=== PATIENT | female | born 1940 | race Caucasian/White ===

== ENCOUNTER 2017-08-13 08:16 | Day surgery (SDC) | payer OTHER, SELFPAY ==
[~2017-08-13 08:16] MED LIST: AMLO5 PO; ASPI81CH PO; Atenolol25 MG PO; CLON1 PO; GABA100 PO; LEVSOD75 PO; LIVALO2 MG PO; LOSA50 PO; WARF5 PO
[2017-09-01] MEDS ORDERED: CLON.1 PO (15:21)
[2017-09-01] MEDS ORDERED: METO25ER PO (15:23)
[2017-09-07] MEDS ORDERED: Coq-10100 MG PO (13:56)
[2017-09-07] MEDS ORDERED: Super B Comple150 MG PO (13:56)
[2017-09-07] MEDS ORDERED: VITAMIN B122500 MC1 PO (13:56)
[2017-09-07] MEDS ORDERED: CHOL10002 PO (13:57)
== END 2017-08-13 22:57 | disposition home or self-care (01) ==
LOC: MOI US 08:16
PROC: 0HBU3ZX Excision of Left Breast, Percutaneous Approach, Diagnostic (ICD-10-PCS; principal; 2017-08-13)
DX: C50.812 Malignant neoplasm of overlapping sites of left female breast (principal); Z17.0 Estrogen receptor positive status [ER+]
CPT/HCPCS: 19083; 19084; 77065; 88305; 88360; A4648

== ENCOUNTER 2017-09-09 07:55 | Day surgery (SDC) | payer OTHER, SELFPAY ==
[~2017-09-09] VITALS: Ht 170.2 cm; Wt 93.4 kg
[~2017-09-09 07:55] MED LIST changes: +CHOL10002 PO; +CLON.1 PO; +Coq-10100 MG PO; +METO25ER PO; +Super B Comple150 MG PO; +VITAMIN B122500 MC1 PO
== END 2017-09-10 14:16 | disposition home or self-care (01) ==
LOC: ORSCMMR 07:55 → NM 07:55 → ORSCMMR 07:56 → NM 09:00 → ORSCMMR 13:40 → SURS 13:40 → NM 09-10 14:16 → ORSCMMR 09-10 14:16 → SURS 09-10 14:16
PROVIDERS: Surgery
PROC: 07B60ZX Excision of Left Axillary Lymphatic, Open Approach, Diagnostic (ICD-10-PCS; principal; 2017-09-09 11:25)
PROC: 0HBU0ZZ Excision of Left Breast, Open Approach (ICD-10-PCS; principal; 2017-09-09 11:25)
DX: C50.012 Malignant neoplasm of nipple and areola, left female breast (principal); D36.0 Benign neoplasm of lymph nodes; I48.91 Unspecified atrial fibrillation; Z79.01 Long term (current) use of anticoagulants; Z79.82 Long term (current) use of aspirin; I10 Essential (primary) hypertension; I25.10 Atherosclerotic heart disease of native coronary artery without angina pectoris; Z95.0 Presence of cardiac pacemaker; Z87.891 Personal history of nicotine dependence; E03.9 Hypothyroidism, unspecified; E66.9 Obesity, unspecified; Z68.32 Body mass index [BMI] 32.0-32.9, adult
CPT/HCPCS: 38792; 88307; 88341; 88342; A9520; J1100; J1650; J1885; J2405; J3010; J7030; J7120; Q9968

== ENCOUNTER → 2017-10-04 | Outpatient (CLI) | payer OTHER, SELFPAY ==
[2017-10-04 17:05] LABS: Alanine Aminotransfer (ALT/SGP 25 U/L (12-78); Albumin, Blood 2.6 g/dL (3.4-5.0); Albumin/Globulin Ratio 0.9 (0.8-1.8); Alk Phos 81 U/L (50-136); Anion Gap 4 mmol/L (6-16); Aspartate Aminotrans (AST/SGOT 20 U/L (12-37); Bilirubin, Total 0.7 mg/dL (0.1-1.0); Blood Urea Nitrogen 18 mg/dL (8-24); CO2, Blood 29 mmol/L (21-32); Calcium, Blood 7.6 mg/dL (8.5-10.1); Chloride, Blood 108 mmol/L (98-108); Creatinine, Blood 0.75 mg/dL (0.40-1.00); Globulin, Blood 2.8 g/dL (2.2-4.0); Glomerular Filtration Rate >60 (60-); Glucose, Blood 119 mg/dL (70-99); Potassium, Blood 3.9 mmol/L (3.5-5.5); Sodium, Blood 141 mmol/L (136-145); Total Protein, Blood 5.4 g/dL (6.4-8.2)
== END | disposition home or self-care (01) ==
LOC: LAB 16:34 → LAB SHORT 16:34
PROVIDERS: Internal Medicine Hematology & Oncology
DX: C50.012 Malignant neoplasm of nipple and areola, left female breast (principal); Z17.0 Estrogen receptor positive status [ER+]
CPT/HCPCS: 80053

== ENCOUNTER → 2018-10-03 | Outpatient (CLI) | payer OTHER | END | disposition home or self-care (01) | LOC: PLD 07:39 → LAB SHORT 07:39 | DX: L57.0 Actinic keratosis (principal) | CPT/HCPCS: 88305 ==

== ENCOUNTER → 2020-06-10 | Outpatient (CLI) | payer OTHER | END | disposition home or self-care (01) | LOC: LAB 08:38 → LAB SHORT 08:38 | DX: C4A.4 Merkel cell carcinoma of scalp and neck (principal) | CPT/HCPCS: 88305; 88341; 88342 ==

== ENCOUNTER → 2020-12-10 | Outpatient (CLI) | payer OTHER | END | disposition home or self-care (01) | LOC: LAB SHORT 15:46 | DX: L82.1 Other seborrheic keratosis (principal) | CPT/HCPCS: 88305 ==

== ENCOUNTER 2021-10-29 12:37 | Inpatient (IN) | payer OTHER ==
[~2021-10-29] VITALS: Ht 170.2 cm; Wt 88.4 kg
[~2021-10-29 12:37] MED LIST changes: -ASPI81CH PO; +Aspir 8181 MG PO; -CHOL10002 PO; +EUTHYROX100 MC1 PO; +IBRANCE100 M1 PO; +METO100ER PO; -Super B Comple150 MG PO; -VITAMIN B122500 MC1 PO; +VITAMIN D31000 UNI1 PO; +Vitamin B Comple1 EA PO; +Vitamin B-121000 MCG PO
[2021-10-29 13:13] LABS: BASOPHILS ABSOLUTE AUTO 0.06 K/mm3 (0.00-0.23); BASOPHILS PERCENT AUTO 1 % (0-2); EOSINOPHILS ABSOLUTE AUTO 0.08 K/mm3 (0.00-0.68); EOSINOPHILS PERCENT AUTO 1 % (0-6); Hemoglobin 14.9 g/dL (11.5-16.0); IMMATURE GRAN ABSOLUTE AUTO 0.01 K/mm3 (0.00-0.10); IMMATURE GRAN PERCENT AUTO 0 % (0-1); LYMPHOCYTES ABSOLUTE AUTO 1.06 K/mm3 (0.84-5.20); LYMPHOCYTES PERCENT AUTO 19 % (21-46); MONOCYTES PERCENT AUTO 7 % (4-13); Mean Corpuscular HGB 30.7 pg (26.0-34.0); Mean Corpuscular HGB Conc 33.1 g/dL (31.5-36.5); Mean Corpuscular Volume 93 fL (80-100); Mean Platelet Volume 12.3 fL (9.1-12.4); NEUTROPHILS ABSOLUTE AUTO 4.09 K/mm3 (1.96-9.15); NEUTROPHILS PERCENT AUTO 72 % (41-73); Platelet Count 142 K/mm3 (150-400); RDW Coefficient Variation 12.9 % (11.7-14.2); RDW Standard Deviation 43.7 fL (35.1-46.3); Red Blood Cell Count 4.85 M/mm3 (3.80-5.20)
[2021-10-29 13:22] LABS: Bun/Creatinine Ratio 40.1 (12.0-20.0); Calcium, Blood 8.5 mg/dL (8.5-10.1); Creatinine, Blood 0.72 mg/dL (0.40-1.00)
[2021-10-29 13:48] LABS: Bicarbonate Venous 24.8 mmol/L (24.0-30.0); PCO2 Venous 50.4 mmHg (38-42); PO2 Venous 46.5 mmHg (38-42); pH Blood Venous 7.35 (7.34-7.37)
[2021-10-29 17:32] LABS: Influenza A, PCR NEGATIVE (NEGATIVE); Influenza B, PCR NEGATIVE (NEGATIVE); Resp Syncytial Virus, PCR NEGATIVE (NEGATIVE); SARS-Cov-2 (COVID-19) PCR, MMC NEGATIVE (NEGATIVE)
[2021-10-30 04:46] LABS: Bun/Creatinine Ratio 33.3 (12.0-20.0); Calcium, Blood 8.6 mg/dL (8.5-10.1); Creatinine, Blood 0.72 mg/dL (0.40-1.00); Potassium, Blood 3.5 mmol/L (3.5-5.5)
--- NOTE | 2021-10-30 05:16 | NUR ---
SHIFT SUMMARY PT ADMITTED TO PCU AT SHIFT CHANGE. PT ALERT, FOLLOWS DIRECTIONS. SP02>90% ON RA. AFIB/PACED. PT HAD HTN DURING SHIFT, CALL PLACED TO MD BRITO. MD BRITO W/ ORDERS FOR PRN HYDRALAZINE. PT C/O OF MUSCLE SPASMS. CALL PLACED TO MD ZENDEJAS. MD ZENDEJAS W/ ORDERS FOR REQUIP, WHICH HAD SUCCESSFUL RELIEF FOR A FEW HOURS. PT BEGAN TO C/O OF LEG PAIN AGAIN, CALL PLACED TO MD BIRTO. MD BRITO W/ ORDERS FOR VALIUM. UPON ENTERING PT ROOM TO ADMINISTER VALUIM, PT STATES LEGS NO LONGER HURT. MEDICATION WASTED WITH ANOTHER RN AND DOCUMENTED. PURWIK DRAINING TO SUCTION PART OF NIGHT. PT CURRENTLY IN C/D ATTENDS. PT IN RECLINER, DID NOT SLEEP DURING NIGHT. CALL LIGHT IN REACH. TAB ALARM ON.
--- NOTE | 2021-10-30 09:13 | NUR ---
AM NOTE: PATIENT ALERT AND ORIENTED X4. PERRLA. DYSTONIC MOVEMENTS. UP IN RECLINER THIS AM. OCCASIONAL LEG CRAMPS. STANDBY ASSIST TO BSC. ON ROOM AIR AT THIS TIME SATING ABOVE 94%. UP TO 2L AT TIMES WHEN SLEEPING. LUNGS SOUNDING CLEAR AND DIM. OCCASIONAL COUGH. TELE SHOWING AFIB V PACED WITH HR 70-80'S. BP STABLE. NO SIGNS OF EDEMA. DENIES CHEST PAIN/PRESSURE. DENIES ABDOMINAL PAIN/NAUSEA. ATTENDS IN PLACE. BSC WITH 1 PERSON ASSIST. USING CALL LIGHT. TOLERATING PO DIET. DRINKING FLUIDS. DR. BRITO IN TO SEE PATIENT THIS AM. NO NEW ORDERS. DR. BACON IN TO SEE PATIENT. POSSIBLE ANGIO IN AM, NPO AFTERMIDNIGHT. CALL LIGHT IN REACH. DENIES NEEDS AT THIS TIME. WILL CONTINUE TO MONITOR.
--- NOTE | 2021-10-30 11:17 | NUR ---
DR. BACON BACK IN AT THIS TIME. PLAN FOR ANGIO THIS AFTERNOON. NPO AT THIS TIME. PLAN FOR ANGIO AROUND 12:30. VITALS REMAINS STABLE. PATIENT NAPPING ON AND OFF IN RECLINER. WEARING 2L NASAL CANNULA WHEN SLEEPING. DR. BRITO UPDATED.
--- NOTE | 2021-10-30 12:34 | NUR ---
PATIENT LEFT UNIT FOR ANGIO AT THIS TIME.
--- NOTE | 2021-10-30 13:36 | NUR ---
PATIENT BACK FROM [employer] [facility] AT 1330. VITAL SIGNS STABLE. RIGHT RADIAL SITE WITH 14ML TR BAND IN PLACE WELL ARM BOARD. SITE WNL. SOFT, NONTENDER, AND NO SIGNS OF BLEEDING. STRONG RADIAL PULSE. DENIES PAIN. EATING LUNCH AT THIS TIME. POST OP VITALS AND SITE CARE IN PROGRESS. PATIENT EDUCATED ON POST OP PRECAUTIONS REGARDING RADIAL SITE. PATIENT ABLE TO TEACH BACK EDUCATION. WILL CONTINUE TO MONITOR.
--- NOTE | 2021-10-30 18:47 | NUR ---
SHIFT SUMMARY: NO ACUTE CHANGES, SEE PREVIOUS NOTES. VITAL SIGNS REMAIN STABLE. ON 2L NASAL CANNULA. TELE SHOWING AFLUTTER PACED. RIGHT RADIAL SITE WNL. TR BAND REMOVED. ARM BOARD IN PLACE. SITE REMAINS SOFT AND NONTENDER. EATING DINNER AT THIS TIME. WILL CONTINUE TO MONITOR AND REPORT OFF.
[2021-10-31 03:50] LABS: BASOPHILS ABSOLUTE AUTO 0.08 K/mm3 (0.00-0.23); BASOPHILS PERCENT AUTO 1 % (0-2); EOSINOPHILS ABSOLUTE AUTO 0.14 K/mm3 (0.00-0.68); EOSINOPHILS PERCENT AUTO 2 % (0-6); Hematocrit 45.1 % (33.0-51.0); Hemoglobin 15.2 g/dL (11.5-16.0); IMMATURE GRAN ABSOLUTE AUTO 0.02 K/mm3 (0.00-0.10); IMMATURE GRAN PERCENT AUTO 0 % (0-1); LYMPHOCYTES PERCENT AUTO 18 % (21-46); MONOCYTES ABSOLUTE AUTO 0.71 K/mm3 (0.16-1.47); MONOCYTES PERCENT AUTO 9 % (4-13); Mean Corpuscular HGB 30.9 pg (26.0-34.0); Mean Corpuscular HGB Conc 33.7 g/dL (31.5-36.5); Mean Corpuscular Volume 92 fL (80-100); Mean Platelet Volume 11.9 fL (9.1-12.4); NEUTROPHILS ABSOLUTE AUTO 5.43 K/mm3 (1.96-9.15); NEUTROPHILS PERCENT AUTO 70 % (41-73); Platelet Count 158 K/mm3 (150-400); RDW Standard Deviation 43.2 fL (35.1-46.3); Red Blood Cell Count 4.92 M/mm3 (3.80-5.20); White Blood Cell Count 7.78 K/mm3 (4.00-11.30)
[2021-10-31 04:10] LABS: Albumin, Blood 3.5 g/dL (3.4-5.0); Albumin/Globulin Ratio 1.1 (0.8-1.8); Bilirubin, Total 0.9 mg/dL (0.1-1.0); Bun/Creatinine Ratio 38.8 (12.0-20.0); Calcium, Blood 8.6 mg/dL (8.5-10.1); Creatinine, Blood 0.82 mg/dL (0.40-1.00); Globulin, Blood 3.3 g/dL (2.2-4.0); Potassium, Blood 3.9 mmol/L (3.5-5.5); Total Protein, Blood 6.8 g/dL (6.4-8.2)
--- NOTE | 2021-10-31 07:40 | NUR ---
SHIFT SUMMARY PT AOX4 T/O SHIFY. SATS 96% ON RA WHILE AWAKE, DOWN TO 90-91% WHEN DOZING OFF. PLACED ON 1-2 L VIA NC. SATS BACK UP TO 96% WHILE ON CANNULA AND ASLEEP. PT RESTLESS T/O SHIFT. WANTED TO SLEEP IN CHAIR. DENIES ANY PAIN OR C/O. R RADIAL SITE INTACT, NO SIGNS OF ACTIVE BLEEDING OR HEMATOMA. PULSE STRONG.
--- NOTE | 2021-10-31 08:35 | NUR ---
ASSUMED CARE THIS AM PT ALERT AND ORIENTED IN ROOM. VSS THIS AM. PT. SITTING UP IN BEDSIDE CHAIR, ASSISTED TO SET UP BREAKFAST. PT. DENIES PAIN THIS AM. ABLE TO REPOSITION SELF NEEDED. PT PLACED ON 2LNC FOR SLEEP BUT RA WHEN AWAKE. PT. RIGHT RADIAL SITE WNL, CLEAR OCCLUSIVE DRESSING IN PLACE, NO SWELLING NOTED. PT. HAS WRIST IMMOBILIZER IN PLACE FOR REMINDER NOT TO USE. CALL LIGHT IN REACH.
--- NOTE | 2021-10-31 11:38 | NUR ---
DR. CHATMAN IN TO SEE PT. PLANS FOR TRANSFER TO [facility]. AWAITING PT EVAL. PT REMAINS SITTING UP IN BEDSIDE CHAIR, ON RA. VSS
--- NOTE | 2021-10-31 13:29 | NUR ---
ROUNDED ON PT. REMAINS UP IN BEDSIDE CHAIR. SNACK PROVIDED.
--- NOTE | 2021-10-31 15:13 | NUR ---
REPORT TO MEDICAL FLOOR RN, PLANS FOR PT TO TRANSFER TO ROOM 309. PT VOICED CONCERNS OVER NOT HAVING HER SHOES THAT SHE CAME IN WITH, ALINA ORTIZ, I CALLED THE ER TO ASK IF THEY HAD ANY SHOES IN THEIR LOST AND FOUND AND THEY DID NOT. PT NOTIFIED.
--- NOTE | 2021-10-31 15:52 | NUR ---
RECIEVED REPORT - I RECIEVED REPORT FROM GREGORY RAMOS IN PCU AT 1523. PT WAS NOTED TO BE FULL CODE, ON TELEMETRY, 1 PERSON STANDBY AND USES WALKER TO AMBULATE, AOX4 AND PLEASANT, ON RA BY DAY 2L O2 AT NIGHT, HAS A PACEMAKER. PT HAS HX OF L SIDED MASECTOMY 3 YEARS AGO, PER DOCTOR LURDES DO NOT USE L ARM FOR BP OR NEEDLES. PT IS SOMETIMES INCONT OF URINE. 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 OTHER PT HX INCLUDE CKD STAGE 3, HYPOTHYRIODISM, AFIB. PT HAS BEEN SHOWING AFIB AND A-FLUTTER ON TELEMETRY AND VENTRICAL PACED. UPON ARRIVAL ON MEDICAL FLOOR TELE SHOWED AFLUTTER WITH OCCASIONAL PACED VENTRICULAR BEATS AT 74.
--- NOTE | 2021-10-31 18:00 | NUR ---
CALLED DR CHATMAN- PER REPORT WHEN THE PT TRANSFERED TO MEDICAL FLOOR THE PLAN WAS TO SWITCH TO PO LASIX. IV LASIX WAS STILL IN EMAR. CALLED DR CHATMAN TO CLARIFY THIS WAS STILL THE PLAN AND THAT THE IV DOSE SHOULD BE GIVEN. RECIEVED OK TO GIVE THIS DOSE, DR TO REVIEW TOMORROW TO DECIDE ON CHANGE IN ROUTE.
--- NOTE | 2021-10-31 18:48 | NUR ---
SHIFT SUMMARY - PT WAS TRANSFERED TO MEDICAL FLOOR FROM PCU. SHE IS PLEASANT, AOX4, AND COOPERATIVE. SHE IS ON TELEMETRY WITH READINGS OF AFIB, AFLUTTER AND VENT PACED. PT IS A 1 PERSON STANDBY AND USES A WALKER TO AMBULATE. PT CURRENTLY ON IV LASIX, THE PLAN IS TO REMOVE MORE FLUID, STABALIZE THE HYPERTENSION AND HOPEFULLY D/C TOMORROW. PT IS ON RA DURING THE DAY AND NEEDS 2L OF O2 AT NIGHT PER THE PCU NURSE. PT HAD A L SIDE MASECTOMY, BP IS BEING MEASURED FROM HER LEFT CALF. NO BP OR NEEDLES FOR HER LEFT ARM. NO ACUTE EVENTS T/O SHIFT.
--- NOTE | 2021-11-01 04:40 | NUR ---
PT A/0X4, VERY PLEASANT, WANTING TO GO HOME BECAUSE SHE HAS A SON WHO HAS SCHIZOPRENIA AND PT IS AFRAID OF HIM BEING HOME ALONE. PT NOTED W/DYSTONIC MOVEMENTS AND UNALE TO CONTROL THEM. BP 99/59 THIS AM, PT ASYMPTOMATIC DEEPLY SLEEPING. PT HAD NO COMPLAINS THIS SHIFT.
[2021-11-01 05:17] LABS: BASOPHILS ABSOLUTE AUTO 0.07 K/mm3 (0.00-0.23); BASOPHILS PERCENT AUTO 1 % (0-2); EOSINOPHILS ABSOLUTE AUTO 0.21 K/mm3 (0.00-0.68); EOSINOPHILS PERCENT AUTO 3 % (0-6); Hematocrit 41.9 % (33.0-51.0); Hemoglobin 13.9 g/dL (11.5-16.0); IMMATURE GRAN ABSOLUTE AUTO 0.02 K/mm3 (0.00-0.10); IMMATURE GRAN PERCENT AUTO 0 % (0-1); LYMPHOCYTES ABSOLUTE AUTO 1.66 K/mm3 (0.84-5.20); LYMPHOCYTES PERCENT AUTO 23 % (21-46); MONOCYTES ABSOLUTE AUTO 0.94 K/mm3 (0.16-1.47); MONOCYTES PERCENT AUTO 13 % (4-13); Mean Corpuscular HGB 30.7 pg (26.0-34.0); Mean Corpuscular HGB Conc 33.2 g/dL (31.5-36.5); Mean Corpuscular Volume 93 fL (80-100); Mean Platelet Volume 11.9 fL (9.1-12.4); NEUTROPHILS ABSOLUTE AUTO 4.33 K/mm3 (1.96-9.15); NEUTROPHILS PERCENT AUTO 60 % (41-73); Platelet Count 148 K/mm3 (150-400); RDW Coefficient Variation 12.9 % (11.7-14.2); RDW Standard Deviation 43.8 fL (35.1-46.3); Red Blood Cell Count 4.53 M/mm3 (3.80-5.20); White Blood Cell Count 7.23 K/mm3 (4.00-11.30)
[2021-11-01 05:43] LABS: Albumin, Blood 3.2 g/dL (3.4-5.0); Albumin/Globulin Ratio 1.1 (0.8-1.8); Bilirubin, Total 0.9 mg/dL (0.1-1.0); Bun/Creatinine Ratio 37.2 (12.0-20.0); Calcium, Blood 8.4 mg/dL (8.5-10.1); Creatinine, Blood 0.99 mg/dL (0.40-1.00); Magnesium, Blood 2.2 mg/dL (1.6-2.4); Phosphorus, Blood 3.4 mg/dL (2.5-4.9); Potassium, Blood 4.2 mmol/L (3.5-5.5); Total Protein, Blood 6.2 g/dL (6.4-8.2)
[2021-11-01] MEDS ORDERED: AMLO5 PO (11:08)
[2021-11-01] MEDS ORDERED: POTCHL20ER PO (11:09)
[2021-11-01] MEDS ORDERED: FURO40 PO (11:09)
--- NOTE | 2021-11-01 15:00 | NUR ---
DISCHARGE SUMMARY PATIENT IS ALERT AND ORIENTED X4. PATIENT HAS HAD NO ACUTE EVENTS THIS SHIFT. PATIENT HAS NO COMPLAINTS OF PAIN, NAUSEA, VOMITTING OR SOB THIS SHIFT. VITAL SIGNS REVIEWED. PATIENT READ AND UNDERSTOOD DISCHARGE INSTRUCTIONS. MEDICATIONS WERE FAXED TO [facility]. PATIENTS FRIEND DROVE PATIENT HOME AND WAS DISCHARGED WITH HOME HEALTH. WHEELED OUT BY KARUNA HUMPHREY
== END 2021-11-01 15:30 | disposition home health service (06) | DRG 280 ==
LOC: ER 12:37 → PCU 17:39 → MEDS 17:39 → PCU 18:19 → MEDS 10-31 15:20
PROVIDERS: Family Medicine; Hospitalist; Student in an Organized Health Care Education/Training Program; ADMIT Internal Medicine
PROC: 4A023N7 Measurement of Cardiac Sampling and Pressure, Left Heart, Percutaneous Approach (ICD-10-PCS; principal; 2021-10-30)
PROC: B2151ZZ Fluoroscopy of Left Heart using Low Osmolar Contrast (ICD-10-PCS; 2021-10-30)
PROC: B2111ZZ Fluoroscopy of Multiple Coronary Arteries using Low Osmolar Contrast (ICD-10-PCS; 2021-10-30)
DX: I13.0 Hypertensive heart and chronic kidney disease with heart failure and stage 1 through stage 4 chronic kidney disease, or unspecified chronic kidney disease (principal); I21.A1 Myocardial infarction type 2; J96.01 Acute respiratory failure with hypoxia; I50.33 Acute on chronic diastolic (congestive) heart failure; I16.1 Hypertensive emergency; I48.20 Chronic atrial fibrillation, unspecified; C50.912 Malignant neoplasm of unspecified site of left female breast; R25.8 Other abnormal involuntary movements; J43.9 Emphysema, unspecified; E03.9 Hypothyroidism, unspecified; I25.10 Atherosclerotic heart disease of native coronary artery without angina pectoris; N18.30 Chronic kidney disease, stage 3 unspecified; G24.9 Dystonia, unspecified; Z20.822 Contact with and (suspected) exposure to COVID-19; F32.A Depression, unspecified; K21.9 Gastro-esophageal reflux disease without esophagitis; Z79.890 Hormone replacement therapy; Z92.3 Personal history of irradiation; Z88.0 Allergy status to penicillin; Z88.2 Allergy status to sulfonamides; Z79.899 Other long term (current) drug therapy; Z87.891 Personal history of nicotine dependence; Z95.5 Presence of coronary angioplasty implant and graft; Z88.5 Allergy status to narcotic agent; Z95.0 Presence of cardiac pacemaker; Z90.12 Acquired absence of left breast and nipple; Z79.82 Long term (current) use of aspirin; Z88.8 Allergy status to other drugs, medicaments and biological substances
CPT/HCPCS: 0241U; 36415; 71045; 71046; 71260; 76937; 80048; 80053; 82803; 83605; 83735; 83880; 84100; 84484; 85025; 93005; 93010; 93306; 93458; 94660; 96374-59; 96375-59; 96376-59; 97116; 97162; 97530; 99152; 99285-25; A9270; C1769; C1887; C1894; J0360; J1644; J1940; J2250; J3010; J3360; J7030; J7040; Q9967